=== PATIENT | male | born 1980 | race Two or more races ===

== ENCOUNTER 2020-09-13 17:31 | Emergency (ER) | payer SELFPAY ==
[2020-09-13 17:37] VITALS: BP 167/107
[2020-09-13] MEDS ORDERED: PROPARACAINE 0.5% OPHTH DROPS 15 ML EACHEYE STA (17:44)
--- NOTE | 2020-09-13 18:14 | ED Physician Documentation ---
PD HPI OPHTHO - Stated complaint Stated Complaint: LT EYE PX - Chief complaint Chief Complaint: Heent - History obtained from History obtained from: Patient - History of Present Illness Timing - onset: Yesterday Timing - duration: Hours (24) Timing - details: Gradual onset Pain level max: 5 Pain level now: 3 Location: Left Quality / character: Aching Associated symptoms: Redness, Tearing, FB sensation Contributing factors: FB. 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 He states that since that time has become increasingly red and there is tearing. He attempted to wash this at home but it did not relieve the symptoms. He does not wear contacts. No acid or base exposure. Review of Systems Constitutional: denies: Fever, Chills GI: denies: Vomiting Skin: denies: Rash Musculoskeletal: denies: Neck pain, Back pain Neurologic: denies: Headache PD PAST MEDICAL HISTORY - Past Medical History Past Medical History: No - Past Surgical History Past Surgical History: No - Present Medications Home Medications: Ambulatory Orders Medication Instructions Recorded Confirmed Polymyxin B/Trimeth Ophth Drop 1 drops LEFTEYE Q3H 7 Days #1 09/13/20 [Polytrim Ophth Drops] bottle - Allergies Allergies/Adverse Reactions: Allergies Allergy/AdvReac Type Severity Reaction Status Date / Time No Known Drug Allergies Allergy Verified 09/13/20 17:38 - Living Situation Living Situation: reports: With family Living Arrangement: reports: At home - Social History Does the pt have substance abuse?: No PD ED PE NORMAL - Vitals Vital signs reviewed: Yes - General General: Alert and oriented X 3, No acute distress - HEENT HEENT: Moist mucous membranes, Other (Left eye with conjunctival injection and tearing. There is fluorescein uptake on the upper aspect of the left cornea, about the 12 o'clock position. No foreign bodies visible with eversion of the eyelids. No visible embedded foreign bodies.) - Neck Neck: Supple, no meningeal sign - Derm Derm: Warm and dry - Neuro Neuro: Alert and oriented X 3 Results - Vitals Vitals: Vital Signs - 24 hr 09/13/20 17:33 Temperature 36.4 C L Heart Rate 73 Respiratory 16 Rate Blood Pressure 167/107 H O2 Saturation 99 Oxygen O2 Source Room air PD MEDICAL DECISION MAKING - ED course Complexity details: considered differential, d/w patient ED course: Patient with a left eye corneal abrasion. No evidence of foreign body. Symptoms resolved with proparacaine administration. We will place on ophthalmic antibiotics and have him follow-up with his doctor. Patient does not wear glasses or contacts. Patient counseled regarding signs and symptoms for which I believe and urgent re-evaluation would be necessary. Patient with good understanding of and agreement to plan and is comfortable going home at this time This document was made in part using voice recognition software. While efforts are made to proofread this document, sound alike and grammatical errors may occur. Departure - Departure Disposition: 01 Home, Self Care Clinical Impression: Corneal abrasion, left Qualifiers: Encounter type: initial encounter Qualified Code(s): S05.02XA - Injury of conjunctiva and corneal abrasion without foreign body, left eye, initial encounter Condition: Good Instructions: ED Eye Injury Corneal Abrasion Follow-Up: your,doctor in 3 days if not better [Other] Prescriptions: Polymyxin B/Trimeth Ophth Drop [Polytrim Ophth Drops] 1 drops LEFTEYE Q3H 7 Days #1 bottle Comments: Use the eyedrops as prescribed. Follow-up with your doctor in 3 days if not better. Return if you worsen. Discharge Date/Time: 09/13/20 18:37
== END 2020-09-13 18:37 | disposition home or self-care (01) ==
LOC: ED 17:31
DX: S05.02XA Injury of conjunctiva and corneal abrasion without foreign body, left eye, initial encounter (principal); X58.XXXA Exposure to other specified factors, initial encounter; Y93.H3 Activity, building and construction
CPT/HCPCS: 99282; 99284; J3490

== ENCOUNTER 2021-07-26 13:23 | Outpatient (CLI) | payer OTHER ==
--- NOTE | 2021-07-26 14:12 | XRAY Report ---
PROCEDURE: Ankle 3 View LT INDICATIONS: SPRAIN OF LIGAMENT OF L ANKLE TECHNIQUE: 3 views of the ankle were acquired. COMPARISON: None. FINDINGS: BONES: Ossific density distal to the lateral malleolus, which may reflect remote chronic injury. The remaining visualized osseous structures appear maintained. The ankle mortise is maintained on these nonstressed views. SOFT TISSUES: Lateral soft tissue swelling. IMPRESSION: 1.Acute or chronic injury of the lateral malleolus. Reviewed by: Russel Willoughby MD on 07/26/2021 2:10 PM PDT Approved by: Russel Willoughby MD on 07/26/2021 2:10 PM PDT Station ID: [id number]
== END 2021-07-26 23:59 | disposition home or self-care (01) ==
LOC: DI.N 13:23
PROVIDERS: ATTEND Family Medicine
DX: S93.492A Sprain of other ligament of left ankle, initial encounter (principal)

== ENCOUNTER 2021-08-08 06:00 | Outpatient (CLI) | payer OTHER ==
--- NOTE | 2021-08-08 13:23 | XRAY Report ---
PROCEDURE: Ankle 3 View LT INDICATIONS: ANKLE FRACTURE TECHNIQUE: 3 views of the ankle were acquired. COMPARISON: X-ray left ankle, 07/26/2021 FINDINGS: Bones: There is an avulsion fracture in the tip of the distal fibular tip. Ankle mortise is normally aligned. No suspicious bony lesions. Soft tissues: No tibiotalar joint effusion. Achilles tendon appears normal. Soft tissue swelling i s decreased compared to last exam. IMPRESSION: Avulsion fracture at the distal fibular tip. Reviewed by: Donna Astudillo MD on 08/08/2021 1:22 PM PDT Approved by: Donna Astudillo MD on 08/08/2021 1:22 PM PDT Station ID: [id number]
== END 2021-08-08 23:59 | disposition home or self-care (01) ==
LOC: DI.WOS 06:00
PROVIDERS: ATTEND Orthopaedic Surgery
DX: S82.832D Other fracture of upper and lower end of left fibula, subsequent encounter for closed fracture with routine healing (principal)

== ENCOUNTER 2021-09-07 06:00 | Outpatient (CLI) | payer OTHER ==
--- NOTE | 2021-09-07 18:19 | XRAY Report ---
PROCEDURE: Ankle 3 View LT INDICATIONS: ANKLE FRACTURE TECHNIQUE: 3 views of the ankle were acquired. COMPARISON: 08/08/2021 and 07/26/2021 FINDINGS: Bones: Fracture fragment is again noted adjacent to tip of lateral malleolus suggestive of subacute a vulsion injury in this area. No new fracture or dislocation. Ankle mortise is normally aligned. No s uspicious bony lesions. Soft tissues: Mild ankle soft tissue swelling is seen particularly over lateral malleolus. No tibiota lar joint effusion. Achilles tendon appears normal. IMPRESSION: Stable-appearing avulsion injury involving tip of lateral malleolus. Mild ankle soft tis ivory swelling. No new fracture or dislocation. Reviewed by: Geraldo Morgan MD on 09/07/2021 6:18 PM PDT Approved by: Geraldo Morgan MD on 09/07/2021 6:18 PM PDT Station ID: [id number]
== END 2021-09-07 23:59 | disposition home or self-care (01) ==
LOC: DI.WOS 06:00
PROVIDERS: ATTEND Orthopaedic Surgery
DX: S82.62XD Displaced fracture of lateral malleolus of left fibula, subsequent encounter for closed fracture with routine healing (principal)